=== PATIENT | female | born 1960 | race Two or more races ===

== ENCOUNTER 2019-10-24 20:15 | Emergency (ER) | payer OTHER ==
[~2019-10-24] VITALS: Ht 167.6 cm; Wt 59.0 kg
--- NOTE | 2019-10-24 20:17 | NUR ---
PT CAME TO THE ED C/O L MIDDLE FINGER ANIMAL BITE W/ MINIMAL BLEEDING. PT AAOX4, RR EVEN AND UNLABORED ON RA W NAD NOTED. PT CONNECTED TO THE MONITOR AND POX. WILL MONITOR
--- NOTE | 2019-10-24 20:27 | NUR ---
DR CERON AT BEDSIDE
[2019-10-24] MEDS ORDERED: TDAP [DIPH/PERTUSSIS/TET] 0.5 ML VIAL IM ONE ×2 (20:30→20:33)
[2019-10-24] MEDS ORDERED: LIDOCAINE HCL/PF 1% 30 ML VIAL TP ONE (20:30)
[2019-10-24] MEDS ORDERED: HYDROCODONE/APAP 5/325MG 1 EACH TABLET PO ONE (20:30)
[2019-10-24] MEDS ORDERED: HYDROCODONE/APAP 5/325MG 1 EACH TABLET ONE ×2 (20:33→20:34)
[2019-10-24] MEDS ORDERED: LIDOCAINE 1% INJ 50 ML MDV IJ ONE (20:33)
--- NOTE | 2019-10-24 20:37 | NUR ---
EMT AT BEDSIDE FOR WOUND CARE
[2019-10-24 22:08] VITALS: BP 124/87
--- NOTE | 2019-10-24 22:08 | NUR ---
Patient discharged to home in stable condition. Written and verbal after care instructions given. Patient verbalizes understanding of instruction.
== END 2019-10-24 22:09 | disposition home or self-care (01) ==
LOC: ER 20:35
DX: S61.213A Laceration without foreign body of left middle finger without damage to nail, initial encounter (principal); W54.0XXA Bitten by dog, initial encounter; Y93.89 Activity, other specified; Y92.89 Other specified places as the place of occurrence of the external cause; Y99.8 Other external cause status
CPT/HCPCS: 12001; 73130; 90471; 90715; 99283; A6403; J3490 ×2

== ENCOUNTER 2019-10-26 21:00 | Emergency (ER) | payer OTHER ==
--- NOTE | 2019-10-26 21:25 | NUR ---
Note mickializa in EDM - 10/26/19 at 2126 by REHANA PATIENT CAME TO BED 9 C/O LEFT HAND 3RD DIGIT WOUND. PATIENT STATES THAT ON THE 10/24/19 AT 2000, PATIENT WAS WALKING HER DOG WHEN SHE GOT BITTEN BY ANOTHER NUMERICAL CONTROL TOOL PROGRAMMER'S DOG.
--- NOTE | 2019-10-26 21:25 | NUR ---
PATIENT CAME TO ER BED 9 C/O LEFT HAND 3RD DIGIT WOUND. PATIENT STATES THAT ON THE 10/24/19 AT 1999, PATIENT WAS WALKING HER DOG WHEN SHE GOT BITTEN BY ANOTHER INDUSTRIAL ILLUMINATING ENGINEER'S DOG. PATIENT RECEIVED STITCHES. NO DISCOLORATION NOTED ON THE FINGER. NO BLEEDING OR DRAINAGE. PATIENT ABLE TO BEND FINGER, BUT NO FULL RANGE OF MOTION. AAOX4. NO SOB. BREATHING EVENLY AND UNLABORED ON ROOM AIR.
--- NOTE | 2019-10-26 22:01 | NUR ---
Patient discharged to home in stable condition. Written and verbal after care instructions given. Patient verbalizes understanding of instruction.
== END 2019-10-26 22:02 | disposition home or self-care (01) ==
LOC: ER 21:05
DX: S61.213D Laceration without foreign body of left middle finger without damage to nail, subsequent encounter (principal); R41.0 Disorientation, unspecified; R11.2 Nausea with vomiting, unspecified; W54.0XXD Bitten by dog, subsequent encounter

== ENCOUNTER 2019-11-04 18:34 | Emergency (ER) | payer OTHER ==
[~2019-11-04] VITALS: Ht 175.3 cm; Wt 59.0 kg
[2019-11-04 18:41] VITALS: BP 116/78
--- NOTE | 2019-11-04 19:00 | NUR ---
PT SUTURE REMOVED.
== END 2019-11-04 19:15 | disposition home or self-care (01) ==
LOC: ER 18:39
DX: S61.213D Laceration without foreign body of left middle finger without damage to nail, subsequent encounter (principal); W54.0XXD Bitten by dog, subsequent encounter